=== PATIENT | female | born 2005 | race Two or more races ===

== ENCOUNTER 2025-04-06 13:35 | Emergency (ER) | payer MEDICAID, SELFPAY ==
[2025-04-06 13:36] VITALS: BMI 30.2
[2025-04-06 14:00] VITALS: BP 134/83; PULSE 86; RESP 18; TEMP 36.8; O2SAT 99
--- NOTE | 2025-04-06 14:35 | XR_ITS ---
6 Examination: Pelvic ultrasound, transabdominal, complete Technique: Transabdominal ultrasound of the pelvis performed using grayscale imaging Date and time of exam: April 06, 2025, 1536 hrs. Indications: Unable to remove tampon 4 hours ago Findings: Uterus 5.6 cm, foreign body which appears to be in the cervix, 15 x 4 x 7 mm Endometrial stripe 0.8 cm. Right ovary 2.1 cm arterial flow. Left ovary 2.9 cm arterial flow Impression: Positive for foreign body in the cervix
[2025-04-06 15:37] LABS: Collection Type, Urine Voided
[2025-04-06 16:03] LABS: Bacteria,Urine Rare; Bilirubin,Urine Negative (Negative); Blood,Urine 3+ (Negative); Clarity,Urine Clear (Clear/Hazy); Color,Urine Yellow (Lt Yel-Yel); Culture Indicated,Urine Not Indicated; Glucose, Urine Negative (Negative); Ketones,Urine Negative (Negative); Leukocyte Esterase,Urine Negative (Negative); Nitrite,Urine Negative (Negative); PH,Urine 6.0 (5.0-7.0); Protein,Urine 1+ (Neg - Trace); RBC,Urine 1 /hpf (0-3); Specific Gravity,Urine 1.030 (1.001-1.035); Squamous Epithelial Cell,Urine 4 /hpf (0-5); Urobilinogen,Urine Negative mg/dL (0.0-1.0); WBC,Urine 1 /hpf (0-5)
[2025-04-06 16:14] LABS: HCG Qualitative,Urine Negative
--- NOTE | 2025-04-06 18:58 | PD.EDSKIN ---
ED Skin Abcess FB-RME/HPI General Chief complaint: Abdominal Pain Stated complaint: ABOMINAL PAIN, UNABLE TO RETRIEVE TAMPOON Time Seen by Provider: 04/06/25 13:39 Arrival date/time: 04/06/25 13:35 Related Data Home Medications ?Medication ?Instructions ?Recorded ?Confirmed No Known Home Medications 10/31/18 03/21/21 Previous Rx's ?Medication ?Instructions ?Recorded ibuprofen 600 mg tablet 600 mg PO QID PRN pain #20 tabs 03/21/21 Allergies Allergy/AdvReac Type Severity Reaction Status Date / Time No Known Allergies Allergy Verified 03/21/21 10:18 Course Orders Category Date Time Status US pelvic complete Stat Exams 04/06/25 14:35 Completed HCG Qualitative,Urine Stat Lab 04/06/25 15:32 Completed UA, C/S IF [Urinalysis, C/S if Indicated] Stat Lab 04/06/25 15:32 Completed Vital Signs Vital signs: Vital Signs Temperature 98.2 F 04/06/25 14:00 Pulse Rate 86 04/06/25 14:00 Respiratory Rate 18 04/06/25 14:00 Blood Pressure 134/83 H 04/06/25 14:00 Pulse Oximetry (%) 99 04/06/25 14:00 Oxygen Delivery Method Room Air 04/06/25 14:00 Discharge Plan Prescriptions/Referrals Prescriptions/Med Rec: No Action No Known Home Medications ibuprofen 600 mg tablet 600 mg PO QID PRN (Reason: pain) Qty: 20 0RF Referrals: No Primary/Family,Physician [Primary Care Provider] - In 1 week Patient/Caregiver Discharge Instructions Print Language: Bengali
--- NOTE | 2025-04-06 19:01 | PD.GYNCONS ---
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 She notes that pulling the tampon out was met with resistance and it started to come apart - it seemed like the whole tampon did not come out altogether and she was worried there was still part of the tampon inside. She notes using brand name tampon and applicator was plastic. She is on day 2 of her menstrual cycle. She does not use hormonal regulation, but periods are not very heavy in general. Always uses tampons, has never had this issue before. No hx of STIs Sexually active with female partner Believes she had a pap at age 19, but not totally sure No hx of abdominal or gynecologic surgeries SSE done by ELECTROMATIC TYPIST and ER physician revealed no retained tampon, so pelvic ultrasound was done which showed foreign body in cervix [id number] . I was called to evaluate this unusual finding. cc:: cc: Review of Systems Review of Systems Narrative Review of Systems: Review of Systems Systems Reviewed: All systems reviewed, normal except as documented Constitutional Constitutional: Denies body ache(s), Denies chills, Denies fever(s) and Denies headache(s) ENT Ears, Nose, Mouth, and Throat: Denies headache(s) and Denies vertigo Cardiovascular Cardiovascular: Denies chest pain, Denies palpitations, Denies dyspnea and Denies syncope Respiratory Respiratory: Denies cough, Denies dyspnea Gastrointestinal Gastrointestinal: Denies nausea and Denies vomiting Neurologic Neurologic: Denies convulsions, Denies headache(s), Denies other visual disturbances, Denies syncope and Denies vertigo Past Medical History Family History OTHER FAMILY HX: non-contributory Past Medical History Comments PMH COMMENT: Allergic response to bug bites BMI 30.2 Meds Home Medications and Allergies Home Medications ?Medication ?Instructions ?Recorded ?Confirmed ?Type No Known Home Medications 10/31/18 03/21/21 History Allergies Allergy/AdvReac Type Severity Reaction Status Date / Time No Known Allergies Allergy Verified 03/21/21 10:18 Exam - 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 Vital Signs Temp Pulse Resp BP Pulse Ox O2 Del Method 98.2 F 86 18 134/83 H 99 Room Air 04/06/25 14:00 04/06/25 14:00 04/06/25 14:00 04/06/25 14:00 04/06/25 14:00 04/06/25 14:00 Narrative Exam General: well developed, well nourished, no acute distress, conversant Cardiac: normal heart rate Lungs: breathing without distress Abdomen: soft, non-tender, non-distended Extremities: no edema of BLE SSE (Female lan support specialist present for exam): NEFG, very scant blood in vaginal vault related to menses, no retained tampon, cervix visually closed and normal in appearance Bimanual exam: Uterus normal size and contour, no cervical motion tenderness, no adnexal enlargement or tenderness, no retained tampon 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 - Results Labs Labs: Urine 04/06/25 Range/Units 15:32 Urine Color Yellow (Lt Yel-Yel) Urine Clarity Clear (Clear/Hazy) Urine pH 6.0 (5.0-7.0) Ur Specific [place] 1.030 (1.001-1.035) Urine Protein 1+ A (Neg - Trace) Urine Glucose (UA) Negative (Negative) Impressions Impression: Examination: Pelvic ultrasound, transabdominal, complete Technique: Transabdominal ultrasound of the pelvis performed using grayscale imaging Date and time of exam: April 06, 2025, 1536 hrs. Indications: Unable to remove tampon 4 hours ago Findings: Uterus 5.6 cm, foreign body which appears to be in the cervix, 15 x 4 x 7 mm Endometrial stripe 0.8 cm. Right ovary 2.1 cm arterial flow. Left ovary 2.9 cm arterial flow Impression: Positive for foreign body in the cervix Assessment and Plan Assessment and plan (1) No problem, feared complaint unfounded: Status: Acute Assessment and plan: Makayla is a 20yo G0 presenting to ER for difficulty removing tampon this morning. No retained tampon noted on ER ELECTROMATIC TYPIST or physician exams, so pelvic ultrasound was done which showed foreign body in cervix [id number] . Normal SSE and bimanual exam performed by me. Cervix closed. Ultrasound images and report reviewed- suspect very small foreign body is in fact a blood clot given that patient is on her period. This would NOT represent a portion of a tampon. I believe patient did in fact remove all of the tampon this morning, it was just faulty and not normal in size. Plan: -Provided reassurance -Discussed throwing out current box of tampons in case there are other faulty tampons in the batch -Follow up with OBGYN for routine pap smear if none was done at age 19
--- NOTE | 2025-04-06 19:16 | PD.EDABDPN ---
ED Abdominal Pain RME/HPI General Chief Complaint: Abdominal Pain Stated complaint: ABOMINAL PAIN, UNABLE TO RETRIEVE TAMPOON Time seen by provider: 04/06/25 13:39 Arrival date/time: 04/06/25 13:35 This is a case of 21-year-old female with no medical history came in in the emergency room stack tampoon on the vagina area 1 hour prior to arrival in the emergency room patient accidentally pulled the string of the tampon and left the tampon on the vaginal vault patient unable to remove the tampon thus patient decided to start consult here in the emergency room Limitations: no limitations Related Data Home Medications ?Medication ?Instructions ?Recorded ?Confirmed No Known Home Medications 10/31/18 03/21/21 Previous Rx's ?Medication ?Instructions ?Recorded ibuprofen 600 mg tablet 600 mg PO QID PRN pain #20 tabs 03/21/21 Allergies Allergy/AdvReac Type Severity Reaction Status Date / Time No Known Allergies Allergy Verified 03/21/21 10:18 Review of Systems Review of Systems Systems Reviewed: All systems reviewed, normal except as documented Constitutional Constitutional: Reports system reviewed and no additional complaints, except as documented, Denies chills and Denies fever(s) Cardiovascular Cardiovascular: Reports system reviewed and no additional complaints, except as documented and Reports as per HPI Respiratory Respiratory: Reports system reviewed and no additional complaints, except as documented and Reports as per HPI Gastrointestinal Gastrointestinal: Reports system reviewed and no additional complaints, except as documented, Reports as per HPI, Denies abdominal pain, Denies nausea and Denies vomiting Genitourinary Genitourinary: Reports system reviewed and no additional complaints, except as documented, Reports as per HPI, Denies abnormal vaginal bleeding, Denies dysuria, Denies menorrhagia, Denies urinary urgency, Denies vaginal discharge, Denies vaginal dryness, Denies vaginal odor and Denies vaginal pruritus Neurologic Neurologic: Reports system reviewed and no additional complaints, except as documented and Reports as per HPI Past Medical History Past Medical History NEUROLOGIC: Negative Neurological Disorders CARDIAC: Negative Cardiac Disorders or Congestive Heart Failure RESPIRATORY: Negative Chronic Obstructive Pulmonary Disease (COPD) GASTROINTESTINAL: Negative Gastrointestinal Disorders GENITOURINARY: Negative Genitourinary Disorders or Renal Disease REPRODUCTIVE: Negative Pelvic Inflammatory Disease MUSCULOSKELETAL: Positive Musculoskeletal Disorders and Fractures ENDOCRINE: Negative Endocrine Disorders, Diabetes Mellitus Type 1 or Diabetes Mellitus Type 2 HEMATOLOGIC: Negative Blood Disorders Family History OTHER FAMILY HX: non-contributory Social History SMOKING STATUS: Current some day smoker Past Medical History Comments PMH COMMENT: Allergic response to bug bites BMI 30.2 ED Exam General Limitations: Present no limitations General appearance: Present alert and in no apparent distress Head Head exam: Present atraumatic, normocephalic and normal inspection Eye Eye exam: Present normal appearance, PERRL and EOMI ENT ENT exam: Present normal exam, normal oropharynx and mucous membranes moist Neck Neck exam: Present normal inspection, full ROM and trachea midline; Absent tenderness, meningismus, lymphadenopathy or thyromegaly Chest Chest inspection: Present normal inspection and symmetric chest wall rise; Absent tenderness Respiratory Respiratory exam: Present normal lung sounds bilaterally; Absent respiratory distress, wheezes, stridor, accessory muscle use or prolonged expiratory phase Cardiovascular Cardiovascular exam: Present regular rate, normal rhythm and normal heart sounds; Absent bradycardia, tachycardia, irregular rhythm, systolic murmur or diastolic murmur Abdominal Exam Abdominal exam: Present soft and normal bowel sounds; Absent distention, tenderness, guarding, rebound, rigidity, diminished bowel sounds, hyperactive bowel sounds, hypoactive bowel sounds, organomegaly, psoas sign, obturator sign, Rose's sign, Rovsing's sign, tenderness at McBurney's Point or hernia External exam: Present normal external exam; Absent erythema, tenderness, swelling, lesions, lacerations or ecchymosis Speculum exam: Present normal speculum exam and other (No foreign body noted); Absent erythema, vaginal discharge, cervical discharge, vaginal bleeding, foreign body, tissue or laceration Bimanual exam: Present normal bimanual exam; Absent cervical motion tenderness, adnexal tenderness, right adnexal tenderness, left adnexal tenderness, adnexal mass, right adnexal mass, left adnexal mass, uterine enlargement or uterine tenderness Extremities Exam Extremities exam: Present normal inspection and full ROM Back Exam Back exam: Present normal inspection and full ROM Neurological Exam Neurological exam: Present alert, oriented X3, CN II-XII intact, normal gait and reflexes normal; Absent motor sensory deficit Psychiatric Psychiatric exam: Present normal affect and normal mood Skin Skin exam: Present warm, dry, intact and normal color Course Quality Measures none Orders Category Date Time Status US pelvic complete Stat Exams 04/06/25 14:35 Completed HCG Qualitative,Urine Stat Lab 04/06/25 15:32 Completed UA, C/S IF [Urinalysis, C/S if Indicated] Stat Lab 04/06/25 15:32 Completed Vital Signs Vital signs: Vital Signs Temperature 98.2 F 04/06/25 14:00 Pulse Rate 86 04/06/25 14:00 Respiratory Rate 18 04/06/25 14:00 Blood Pressure 134/83 H 04/06/25 14:00 Pulse Oximetry (%) 99 04/06/25 14:00 Oxygen Delivery Method Room Air 04/06/25 14:00 Oxygen saturation is 99% in room air Abdominal Pain MDM MDM Narrative MDM Narrative:: This is a case of 21-year-old female with no medical history came in in the emergency room stack tampoon on the vagina area 1 hour prior to arrival in the emergency room patient accidentally pulled the string of the tampon and left the tampon on the vaginal vault patient unable to remove the tampon thus patient decided to start consult here in the emergency room physical examination patient is awake alert oriented not in distress nontoxic looking no signs and symptoms of sepsis dehydration or acute abdomen abdominal exam is benign nonsurgical no guarding no rebound no rigidity no tenderness negative psoas negative straight or negative Rovsing's negative Matt's no Rose sign negative CVA tenderness bladder and pelvic is not tender nor distended pelvic exam noted normal vagina normal uterus normal adnexa with mild vaginal bleeding patient is on her. No foreign body no palpated foreign body because I did not see any foreign body I ordered pelvic ultrasound and it was showed that the patient have foreign body on the cervical area I tried again to look for the foreign body on the vagina both in cervical area I did not found any by the use of speculum I also palpate around the vagina and cervix and I did not see any foreign body I asked help for Dr. segura discussed patient condition history and physical examination reviewed the ultrasound she tried to remove the foreign body and did not see any foreign body nor palpation I spoke to the radiologist Dr. Brewster and I was told that the patient had foreign body and suggested to ask for help for OB retail aide Dr. Morris was here OB on-call discussed patient condition history and physical examination she examined the patient by the use of speculum and did not see any foreign body on the vagina or cervical area did he did not also palpated any foreign body at this point I was told to discharge the patient follow-up with PCP and if symptoms persist needs to see an OB retail aide for any worsening symptoms or any emergent concern return precaution in the emergency room immediately at was advised Patient discharged Patient data External records reviewed:: [facility] previous records Clinical information provided by:: patient Social determinants that could affect healthcare access:: none Patient has the following chronic illnesses:: None How is presenting disease/condition affected by chronic disease/condition?: no chronic disease Evaluation data The following diagnostics were reviewed and interpreted by me:: lab results and radiology exam(s) Lab and/or radiology exams considered but not ordered:: Reviewed Interpretation Summary: Reviewed Medications / Prescriptions Medications or Prescriptions considered but not ordered:: None Medication administrations:: None Consultations Consultation(s) initiated? (list below): Yes Consultation #1 (Physician, Specialty, Details): dr de souza discussed patient condition history and physical examination examined the patient personally did not see any foreign body nor palpated any for foreign body Consultation #2 (Physician, Specialty, Details): dr Morris discussed patient condition history and physical examination examined the patient personally did not see any foreign body nor palpated any for foreign body Diagnosis Differential diagnosis abdominal pain: other (Foreign body) Most likely diagnosis given after review of the tests above:: Foreign body vaginal vault Admission Indicated Admission indicated?: not indicated Explain why admission is indicated or not indicated:: Not indicate Admission Request Was there a request for admission?: No Admission Attestation Admission request attestation: Not indicated Disposition Plan Disposition Plan: Discharge Discharge Attestation Discharge Attestation: The patient and all family members were given an opportunity to ask questions and understood the discharge instructions. Discharge instructions specifically effects, indications for sooner follow up or return to the emergency department, and the expected course of current diagnosis. Patient condition: Stable Discharge Plan Plan Patient Disposition: HOME (Self Care) Patient condition on transfer: Stable Prescriptions/Referrals Prescriptions/Med Rec: No Action No Known Home Medications ibuprofen 600 mg tablet 600 mg PO QID PRN (Reason: pain) Qty: 20 0RF Referrals: No Primary/Family,Physician [Primary Care Provider] - In 1 week Problem List Clinical Impression: Vaginal foreign body Patient/Caregiver Discharge Instructions Education Materials: ED FOREIGN BODY Vaginal Adult Additional Instructions: Follow-up with your primary care physician in 2 days for reevaluation and if symptoms persist you need to see an OB retail aide for further evaluation and treatment worsening symptoms or any emergent concern call 911 or go to the nearest emergency room Print Language: Upper Sorbian Stand Alone Forms: Aletha Award Info., Patient Portal Info Letter PA/ACCOUNTS PAYABLE TECHNICIAN Supervising Physician PA/ACCOUNTS PAYABLE TECHNICIAN Supervising Physician: dr hinse
== END 2025-04-06 19:19 | disposition home or self-care (01) ==
PROVIDERS: Nurse Practitioner Family; Emergency Provider Emergency Medicine
DX: T19.2XXA Foreign body in vulva and vagina, initial encounter (principal); W44.9XXA Unspecified foreign body entering into or through a natural orifice, initial encounter
CPT/HCPCS: 76856; 81001; 81025; 99283